=== PATIENT | female | born 1945 | race Caucasian/White ===

== ENCOUNTER → 2017-04-08 | Outpatient (CLI) | payer OTHER ==
[~2017-04-08] MED LIST: ESTR0.3T; MULT-506
--- NOTE | 2017-04-08 13:57 | DIAGNOSTIC IMAGING REPORT ---
BILATERAL LOWER EXTREMITY VENOUS DOPPLER HISTORY: Pain. Edema. BILATERAL EDEMA OF LOWER EXTREMITY COMPARISON STUDY: None. FINDINGS: There is normal compressibility, flow, and augmentation within the bilateral lower extremity deep venous systems. IMPRESSION: No DVT within the right or left lower extremity. Electronically signed by: Eric Guallpa M.D. 04/08/2017 1:56 PM Dictated Date/Time: 04/08/2017 1:55 PM
== END | disposition home or self-care (01) ==
LOC: C.ULTR 13:06
PROVIDERS: ATTEND Family Medicine
DX: R60.0 Localized edema (principal)